=== PATIENT | female | born 1965 | race Caucasian/White ===

== ENCOUNTER 2025-01-12 12:18 | Emergency (ER) | payer OTHER, SELFPAY ==
[2025-01-12 12:21] VITALS: BP 188/144
[2025-01-12 12:39] VITALS: BP 176/107
--- NOTE | 2025-01-12 12:52 | ED.GENMED ---
History of Present Illness
General
Chief Complaint: Blood Pressure Problem
Source: patient
Exam Limitations: none
Time Seen by Provider: 01/12/25 12:39
Nursing documentation reviewed up to this point in time: agreed with
History of Present Illness
History of Present Illness:
59-year-old female with past medical history of hypertension, diabetes who presents to the emergency department for evaluation of neck pain and jaw pain, dizziness. Patient reports that she had flulike illness last week that lasted for 24 hours and
resolved. A few days later she started to feel 'not quite right.' She says she did she has had some mild dizziness. She has noticed some fullness in the right side of her neck. She has today she noticed some tingling in the left jaw. She says
she has been watching her blood pressure if she thinks her symptoms could be related and it has been running much higher than usual. Ultimately decided to come to the ER to be evaluated. She denies any chest pain. She has some chronic dyspnea no
worse than usual. She does have some swelling in the ankles which is new for her. Reports occasional mild headache. Denies any vision loss, focal weakness or numbness. Denies other acute complaints. Patient notes that hypertension is acute on
chronic, currently takes Coreg 25 mg twice daily, hydrochlorothiazide 12.5 mg daily, valsartan 160 mg daily without any recent adjustments and with reported good compliance. She does admit to generally high salt intake but not acutely changed from
usual.
Past History
Past History
ED Past Medical History: None
ED Past Surgical History: None
Review of Systems
Review of Systems
All Other Systems: ROS reviewed and negative except as documented in HPI and ROS
Constitutional: Denies fever
EENT: Reports other (Neck pain and jaw pain)
Respiratory: Denies trouble breathing (Chronic and unchanged)
Cardiac: Denies chest pain
ABD/GI: Denies abdominal pain, nausea or vomiting
: Denies flank pain
Musculoskeletal: Reports edema and neck pain; Denies back pain
Neurological: Reports dizzy; Denies headache, weakness or numbness
Phy Exam
Physical Exam
Physical Exam:
General: Awake, alert, oriented x3; no acute distress
Head: Normocephalic, atraumatic
Eyes: Conjunctiva normal, EOMI, pupils equal round and reactive to light bilaterally
Throat: Airway intact, handling secretions
Neck: Trachea midline, supple without meningismus, no carotid bruits appreciated
Lungs: Clear to auscultation bilaterally, no wheezing, rales, rhonchi
Heart: Regular rate and rhythm, no murmurs, gallops, or rubs
Neuro: Cranial nerves intact, speech fluid, motor and sensory intact in all extremities
Skin: Warm and dry
Extremities: Trace edema around the ankles, equal pulses in all extremities
Scores
Heart Failure Risk
Heart Failure Risk Score: Not Applicable
Heart Score for Chest Pain Patients
STEMI patient?: Not applicable
Withdrawal Assessment of Alcohol
Withdrawal Assessment Completed?: Not applicable
Course
Orders/Labs/Results
Orders:
Orders
01/12/25 12:24
Electrocardiogram (*1) Urgent
Reason for Study: Chest Pain
EKG- Treatment ONCE
Test Result ONCE
01/12/25 12:51
US Carotid [US Cerebrovascular] Urgent
Comment:
Reason For Exam: right sided neck pain
01/12/25 12:57
HydrALAZINE [Apresoline] 10 mg IV NOW STA
01/12/25 13:13
Complete Blood Count/With Diff Urgent
Comprehensive Metabolic Panel Urgent
HCG, Serum Qualitative Screen Urgent
Comment: Notify provider if positive test present
Troponin I Urgent
01/12/25 16:01
Troponin I Urgent
01/12/25 16:48
Carvedilol [Coreg] 37.5 mg PO NOW STA
01/12/25 16:51
Carvedilol [Coreg] 25 mg PO NOW STA
01/12/25 16:52
Hydrochlorothiazide [Oretic] 12.5 mg PO NOW ONE
Abnormal Lab Results
01/12/25
13:13
RBC 4.11 L 10^6/uL
(4.20-5.40)
Hgb 11.6 L g/dL
(12.0-16.0)
Hct 35.8 L %
(37.0-47.0)
MCHC 32.4 L g/dL
(33.0-37.0)
Glucose 135 H mg/dl
(70-99)
01/12/25 13:13
01/12/25 13:13
Vital Signs
Initial and Last Documented VS:
Initial Vital Signs
Temp Pulse Resp BP Pulse Ox
36.5 C 83 16 188/144 98
01/12/25 12:21 01/12/25 12:21 01/12/25 12:21 01/12/25 12:21 01/12/25 12:21
Last Documented Vital Signs
Temp Pulse Resp BP Pulse Ox
36.5 C 88 22 146/88 97
01/12/25 12:21 01/12/25 16:45 01/12/25 16:45 01/12/25 15:18 01/12/25 13:30
MDM/Problems Addressed
Differential Diagnosis Includes:
Hypertension, anginal equivalent/ACS, anemia, electrolyte abnormality, anxiety; less likely carotid dissection
MDM/Problems Addressed:
59-year-old female presents to the ER for evaluation of dizziness, fullness in the right neck and some left jaw tingling over the past few days with poorly controlled blood pressure. Blood pressure 188/144 on arrival here. Rest of vitals are
normal. Her physical exam is as above. EKG shows sinus rhythm no STEMI. Will plan to check labs including a CBC and a CMP, troponin. Check carotid ultrasound. Will monitor closely reassess after the above.
Labs reviewed: CBC shows mild stable anemia, CMP no clinically significant abnormalities. Initial troponin undetectable�repeat for completeness. Vascular ultrasound of the carotids unremarkable. Blood pressure greatly improved after medication
here. She is feeling a bit better after improvement in blood pressure. Continue to monitor.
Patient had a minor less than 10-second run of tachycardia with heart rate of around 140 appears narrow complex and regular on rhythm strip. Heart rate in the 80s by the time of my assessment. Rhythm strip printed out. She has a cardiology
appointment this Thursday and she was given a copy of the rhythm strip to follow-up with her signal person�it appears narrow and regular, will hold off on any further treatment after very brief episode pending cardiology assessment.
Repeat troponin undetectable. Clinical reassessment patient is feeling a bit better blood pressures have been stable and normal sinus receiving hydralazine here. At this point no clear emergent pathology, we will plan to discharge patient and have
her follow-up with her primary doctor closely for further discussion regarding her symptoms and blood pressure. For now we will plan to increase her HCTZ dose. Patient is comfortable this plan. Spoke about return precautions and all questions
answered.
Chronic conditions affecting care:
Hypertension
Acute Exacerbation and/or Progression of Chronic Illness: HTN
*Radiology
Radiology exam reviewed: radiology read reviewed
*Pulse Oximetry
SaO2: 98
Oxygen Mode of Delivery: Room air
Patient hypoxic: no (98%)
*EKG
Interpreted by ED Provider?: Yes
Heart Rate: 72
Rate: normal
Rhythm: sinus
[place]: left axis deviation
Interval: first degree heart block
QRS Pattern: normal QRS
Ischemia: no ischemia
*Critical Care Note
Total Time (30-74mins, 75-104mins- exclusive of procedures): Not Applicable
Data Reviewed
Source: patient and records
ED Attending Note
-
Portions of this chart may have been created with voice recognition software.� Occasional wrong word or��sound alike� substitutions may have occurred due to the inherent limitations of voice recognition software.
Discharge Plan
Departure
Patient Disposition: Home (Routine Discharge)
Date of Disposition: 01/12/25
Time of Disposition: 16:44
Patient with high blood pressure during this ER visit?: Yes
Discharge Problem:
Hypertension, Neck pain, Jaw pain
Instructions: High Blood Pressure (DC)
Prescriptions:
New
hydrochlorothiazide 25 mg tablet
25 mg PO DAILY Qty: 30 0RF
No Action
apixaban [Eliquis] 5 MG tablet
10 mg PO BID Qty: 42 0RF
Referrals:
Juany Alarcon MD [Family Provider, Internal Medicine] - Follow up in 1 week
Activity Restrictions/Additional Instructions:
Thank you for visiting the Emergency Department at [facility].
1. Please schedule a follow up appointment as directed. Call first thing tomorrow morning to make an appointment.
2. If indicated, please take your medications as instructed and indicated on discharge paperwork.
3. If any of your symptoms do not improve, or persist, or become more severe within 6-12 hours, please return to the emergency department for further care.
4. Please return to the emergency department if you develop a headache, neck pain/stiffness, fever greater than 100.4F, chest pain, shortness of breath, persistent nausea, vomiting, slurred speech, difficulty walking, numbness/tingling, weakness,
signs of infection or any other symptoms that are worrisome to you.
Please call [phone] if you have any questions.
Interventions
Interventions:
*Risk Screen - Suicide Last Done: 01/12/25 12:21
*General Assessment Last Done: 01/12/25 13:20
*Neglect/Abuse Screening Last Done: 01/12/25 12:21
*ED- Fall Risk Assessment Last Done: 01/12/25 13:20
*ED COVID-19 Vaccine History Last Done: 01/12/25 13:20
*ED Influenza Vaccine History Last Done: 01/12/25 13:20
ED- Pulmonary Assessment Last Done: 01/12/25 16:29
ED- Neurological Assessment Last Done: 01/12/25 13:22
ED- Cardiac Assessment Last Done: 01/12/25 13:23
Discharge Date and Time
Print Language: ALBANIAN
[2025-01-12 13:00] VITALS: BP 153/96
[2025-01-12 13:05] VITALS: BMI 45.7
[2025-01-12] MEDS: APRESOLINE 10 MG IV (13:14)
[2025-01-12 13:28] LABS: Hematocrit 35.8 % (37.0-47.0); Hemoglobin 11.6 g/dL (12.0-16.0); Mean Corp Hgb Conc. 32.4 g/dL (33.0-37.0); Mean Corpuscular Volume 87.1 fL (81.0-99.0); Nucleated Red Blood Cells % 0 %; Platelet Count 316 10^3/uL (130-400); Red Cell Dist. Width 13.2 % (11.5-14.5)
[2025-01-12 13:43] VITALS: BP 126/73
[2025-01-12 13:44] LABS: HCG, Serum Qualitative Screen Negative
[2025-01-12 13:52] LABS: ALT (SGPT) 22 U/L (0-35); AST (SGOT) 21 U/L (14-36); Albumin 3.9 g/dl (3.5-5.0); Alkaline Phosphatase 106 U/L (38-126); Blood Urea Nitrogen 15 mg/dl (7-17); Calcium 9.2 mg/dl (8.4-10.2); Carbon Dioxide 27 mmol/L (22-30); Chloride 103 mmol/L (98-107); Estimated Creatinine Clearance 108 ml/min; Glucose 135 mg/dl (70-99); Potassium 4.2 mmol/L (3.5-5.1); Sodium 136 mmol/L (135-145); Total Protein 7.1 g/dl (6.3-8.2); eGFR > 60.00
[2025-01-12 13:56] LABS: Troponin I < 0.012 ng/ml
[2025-01-12 14:00] VITALS: BP 138/77
[2025-01-12 15:18] VITALS: BP 146/88
[2025-01-12 16:32] LABS: Troponin I < 0.012 ng/ml
[2025-01-12] MEDS: COREG 25 MG PO (17:10)
[2025-01-12] MEDS: ORETIC 12.5 MG PO (17:10)
== END 2025-01-12 17:15 | disposition home or self-care (01) ==
LOC: EMR 12:18
PROVIDERS: Student in an Organized Health Care Education/Training Program; EMERGENCY PHYSICIAN Emergency Medicine; FAMILY PHYSICIAN Family Medicine
DX: I10 Essential (primary) hypertension (principal); M54.2 Cervicalgia; R68.84 Jaw pain; D64.9 Anemia, unspecified; E11.9 Type 2 diabetes mellitus without complications
CPT/HCPCS: 99284; 96374; 80053; 84484; 84703; 85025; 93005; 93880